=== PATIENT | female | born 1980 | race American Indian/Alaskan Native ===

== ENCOUNTER 2020-11-29 15:14 | Emergency (ER) | payer BC, MEDICAID ==
[2020-11-29 15:40] VITALS: BP 122/79
[2020-11-29] MEDS ORDERED: TETANUS,DIPH,PERTUSS(ACELL) VACCINE 0.5 ML SYRINGE IM ONE (16:22)
[2020-11-29] MEDS ORDERED: IBUPROFEN 600 MG TAB PO ONE (16:22)
--- NOTE | 2020-11-29 16:22 | Emergency Department Report ---
ED Lower Extremity HPI - General Chief Complaint: Extremity Injury, Lower Stated Complaint: ANKLE,LEG,FOOT PAIN Time Seen by Provider: 11/29/20 16:11 Source: patient Mode of arrival: Ambulatory Limitations: No Limitations - History of Present Illness Initial Comments: 40-year-old female presents to the ER today with complaints of injury to left posterior ankle. She states injury occurred last night. Patient states she was helping mom put a [place] size bed together when the head board fell and struck her to posterior aspect of left ankle. She complains of pain to ankle which radiates to her foot with swelling about the ankle and an abrasion to posterior ankle. She reports pain with movement of ankle and ambulation. She denies any prior issues with her ankle or surgeries to her ankle. MD Complaint: ankle injury -: days(s) (1) - Related Data Previous Rx's Medication Instructions Recorded Last Taken Type Ondansetron [Zofran Odt] 4 mg PO Q8HR #14 tab.rapdis 07/25/15 Unknown Rx Acetaminophen/Codeine [Tylenol 1 tab PO Q6H PRN #14 tab 11/29/20 Unknown Rx /Codeine # 3 tab] Ibuprofen [Motrin] 600 mg PO Q8H PRN #20 tablet 11/29/20 Unknown Rx Allergies Allergy/AdvReac Type Severity Reaction Status Date / Time No Known Allergies Allergy Verified 11/29/20 15:39 ED Review of Systems ROS: Stated complaint: ANKLE,LEG,FOOT PAIN Other details as noted in HPI Comment: All other systems reviewed and negative Constitutional: denies: chills, fever Eyes: denies: eye pain, eye discharge, vision change ENT: denies: ear pain, throat pain Respiratory: denies: cough, shortness of breath, SOB with exertion, SOB at rest, wheezing Cardiovascular: denies: chest pain, palpitations Gastrointestinal: denies: abdominal pain, nausea, vomiting, diarrhea, constipation, hematemesis, hematochezia Musculoskeletal: joint swelling, arthralgia, myalgia Skin: denies: rash, lesions Neurological: abnormal gait. denies: headache, weakness, numbness, paresthesias, confusion, vertigo Psychiatric: denies: anxiety, depression, auditory hallucinations, visual hallucinations, homicidal thoughts, suicidal thoughts Hematological/Lymphatic: denies: easy bleeding, easy bruising, swollen glands ED Past Medical Hx - Social History Smoking Status: Current Every Day Smoker Substance Use Type: None - Medications Home Medications: Home Medications Medication Instructions Recorded Confirmed Last Taken Type Ondansetron [Zofran Odt] 4 mg PO Q8HR #14 tab.rapdis 07/25/15 Unknown Rx Acetaminophen/Codeine [Tylenol 1 tab PO Q6H PRN #14 tab 11/29/20 Unknown Rx /Codeine # 3 tab] Ibuprofen [Motrin] 600 mg PO Q8H PRN #20 tablet 11/29/20 Unknown Rx ED Physical Exam - General Limitations: No Limitations General appearance: alert, in no apparent distress - Head Head exam: Present: atraumatic, normocephalic, normal inspection - Eye Eye exam: Present: normal appearance, PERRL, EOMI Pupils: Present: normal accommodation - Neck Neck exam: Present: normal inspection, full ROM. Absent: meningismus - Respiratory Respiratory exam: Present: normal lung sounds bilaterally. Absent: respiratory distress, wheezes, rales, rhonchi - Cardiovascular Cardiovascular Exam: Present: regular rate, normal rhythm, normal heart sounds - GI/Abdominal GI/Abdominal exam: Present: soft. Absent: distended, tenderness, guarding, rebound - Expanded Lower Extremity Exam Left Ankle exam: Present: tenderness (Moderate posterior ankle and lateral left anklel ), swelling (Mild ), abrasion (mild, healing well without infection ). Absent: full ROM (reduced due to pain ), laceration, ecchymosis, deformity, crepidus, dislocation, erythema Foot/Toe exam: Present: normal inspection. Absent: tenderness, swelling, abrasion, laceration, ecchymosis, deformity, crepidus Neuro vascular tendon exam: Present: no vascular compromise. Absent: pulse deficit, motor deficit, sensory deficit, tendon deficit (neg garrett test) Gait: Positive: observed and limited by pain - Neurological Exam Neurological exam: Present: alert, oriented X3, CN II-XII intact - Psychiatric Psychiatric exam: Present: normal affect, normal mood - Skin Skin exam: Present: warm, dry, intact, normal color. Absent: rash ED Course Vital Signs 11/29/20 15:38 Temperature 98.3 F Pulse Rate 102 H Respiratory 18 Rate Blood Pressure 122/79 O2 Sat by Pulse 98 Oximetry ED Lower Extremity MDM - Radiology Data Radiology results: report reviewed Patient: AIXA ALVAREZ MR#: [id number] : 1980 Acct:[id number] Age/Sex: 40 / F ADM Date: 11/29/20 Loc: ED Attending Dr: Ordering Physician: CORA MCKAY Date of Service: 11/29/20 Procedure(s): XR ankle 3+V LT Accession Number(s): [id number] cc: CORA MCKAY Fluoro Time In Minutes: LEFT ANKLE 3 VIEWS INDICATION / CLINICAL INFORMATION: posterior ankle injury COMPARISON: None available. FINDINGS: BONES / JOINT(S): No acute fracture or subluxation. No significant arthritis. SOFT TISSUES: There is mild soft tissue swelling over the lateral malleolus. ADDITIONAL FINDINGS: None. Signer Name: Azam Rizvi MD Signed: 11/29/2020 4:50 PM Workstation Name: [id number] Transcribed By: SS Dictated By: Azam Rizvi MD Electronically Authenticated By: Azam Rizvi MD Signed Date/Time: 11/29/201649 DD/ 48 TD/TT: Critical care attestation.: If time is entered above; I have spent that time in minutes in the direct care of this critically ill patient, excluding procedure time. ED Disposition Clinical Impression: Ankle contusion, Abrasion of ankle without infection Disposition: 01 HOME / SELF CARE / HOMELESS Is pt being admited?: No Does the pt Need Aspirin: No Condition: Stable Instructions: Contusion, Elastic Bandage and RICE Therapy, Abrasion, [id number] Additional Instructions: I recommend following the RICE protocol on your discharge instructions help with the conservative treatment of your ankle. Elevate your leg as often as possible. Recommend that you take the Tylenol threes and ibuprofen as prescribed to help with pain. Use the crutches to help ambulate. Follow-up with creative specialist in 1 to 2 weeks if your symptoms persist. Return to the ER if your symptoms changes or worsens in any way. Prescriptions: Ibuprofen [Motrin] 600 mg PO Q8H PRN #20 tablet PRN Reason: Pain Acetaminophen/Codeine [Tylenol /Codeine # 3 tab] 1 tab PO Q6H PRN #14 tab PRN Reason: Pain Referrals: EDE SILVEIRA MD [Staff Physician] - 7-10 days Forms: Work/School Release Form(ED) Time of Disposition: 17:26 Print Language: GEORGIAN
--- NOTE | 2020-11-29 16:55 | XRay Report ---
LEFT ANKLE 3 VIEWS INDICATION / CLINICAL INFORMATION: posterior ankle injury COMPARISON: None available. FINDINGS: BONES / JOINT(S): No acute fracture or subluxation. No significant arthritis. SOFT TISSUES: There is mild soft tissue swelling over the lateral malleolus. ADDITIONAL FINDINGS: None. Signer Name: Azam Rizvi MD Signed: 11/29/2020 4:50 PM Workstation Name: [id number]
== END 2020-11-29 18:16 | disposition home or self-care (01) ==
LOC: ED 15:14
DX: S90.02XA Contusion of left ankle, initial encounter (principal); F17.200 Nicotine dependence, unspecified, uncomplicated; X58.XXXA Exposure to other specified factors, initial encounter; Y93.89 Activity, other specified; Y92.89 Other specified places as the place of occurrence of the external cause; Y99.8 Other external cause status
CPT/HCPCS: 90471; 90715; 99283